=== PATIENT | male | born 1995 | race Caucasian/White ===

== ENCOUNTER → 2018-09-22 | Outpatient (CLI) | payer OTHER ==
[~2018-09-22] MED LIST: Motrin,Rufen800 MG PO
== END | disposition home or self-care (01) ==
LOC: RAD 17:06
DX: R04.2 Hemoptysis (principal)

== ENCOUNTER → 2022-11-27 | Outpatient (CLI) | payer OTHER | END | disposition home or self-care (01) | LOC: RESCLI 08:01 | PROVIDERS: ATTEND Internal Medicine | DX: R51.9 Headache, unspecified (principal); E66.01 Morbid (severe) obesity due to excess calories; Z71.89 Other specified counseling; Z72.821 Inadequate sleep hygiene; Z79.899 Other long term (current) drug therapy; Z88.8 Allergy status to other drugs, medicaments and biological substances; Z88.0 Allergy status to penicillin ==

== ENCOUNTER → 2022-12-05 | Outpatient (CLI) | payer OTHER | END | disposition home or self-care (01) | LOC: RESCLI 01:36 | PROVIDERS: ATTEND Student in an Organized Health Care Education/Training Program | DX: E66.01 Morbid (severe) obesity due to excess calories (principal); F10.90 Alcohol use, unspecified, uncomplicated; R51.9 Headache, unspecified; Z71.89 Other specified counseling; Z72.821 Inadequate sleep hygiene; Z88.0 Allergy status to penicillin; Z82.49 Family history of ischemic heart disease and other diseases of the circulatory system; Z98.890 Other specified postprocedural states; Z79.899 Other long term (current) drug therapy ==

== ENCOUNTER → 2023-01-14 | Outpatient (CLI) | payer OTHER | END | disposition home or self-care (01) | LOC: RESCLI 00:49 | PROVIDERS: ATTEND Family Medicine | DX: Z71.89 Other specified counseling (principal); E66.01 Morbid (severe) obesity due to excess calories; Z72.821 Inadequate sleep hygiene; I10 Essential (primary) hypertension; E11.9 Type 2 diabetes mellitus without complications; J01.90 Acute sinusitis, unspecified; R51.9 Headache, unspecified; F10.90 Alcohol use, unspecified, uncomplicated; Z88.0 Allergy status to penicillin; Z98.890 Other specified postprocedural states; Z79.899 Other long term (current) drug therapy ==

== ENCOUNTER → 2023-02-07 | Outpatient (CLI) | payer OTHER | END | disposition home or self-care (01) | LOC: RESCLI 01:32 | PROVIDERS: ATTEND Internal Medicine | DX: G43.909 Migraine, unspecified, not intractable, without status migrainosus (principal); J30.9 Allergic rhinitis, unspecified; Z96.649 Presence of unspecified artificial hip joint; Z98.890 Other specified postprocedural states; Z79.899 Other long term (current) drug therapy ==

== ENCOUNTER → 2023-03-19 | Outpatient (CLI) | payer OTHER | END | disposition home or self-care (01) | LOC: MRI 00:53 | PROVIDERS: ATTEND Psychiatry & Neurology Neurology | DX: G44.89 Other headache syndrome (principal) ==